=== PATIENT | male | born 1935 | race Caucasian/White ===

== ENCOUNTER 2016-10-16 16:51 | Inpatient (IN) | payer OTHER, MEDICARE ==
[~2016-10-16] VITALS: Ht 174 cm
[~2016-10-16 16:51] MED LIST: ALBUTEROL2.5 MG/3 M IH; ASA CHILDREN'S81 MG PO; BENADRY PO; DIFLUCAN DPS100 MG PO; GLUCOTROL DPS5 MG PO; HUMULIN SQ; METOPROLOL TART25 MG PO; MOVANTIK25 MG PO; MUCINEX600 MG PO; NEURONTIN800 MG PO; NORCO 10-325 T1 EACH PO; NOVOLIN-N,100 UNITS/ SQ; PROAIR HFA8.5 GM IH; SV CALCIUM-MAG1 EACH PO; SYMBICORT160 MCG/6; TIZANIDINE HCL2 M1 PO; VITAMIN D1000 UNIT PO; [UNRECOGNIZED DRUG - OTHER] PO
--- NOTE | 2016-10-17 21:15 | NUR ---
REPORT GIVEN @ BEDSIDE @ 184, PT PALE, SLEEPING, RESPIRATIONS LABORED AND DEEP, ON CONTINOUS DILAUDID ADMINISTRATIVE OFFICE ASSISTANT, FAMILY @ BEDISDE, NO ASSESSMENT DONE AT THAT TIME. NURSE ALERTED ME THAT PT WAS AGNOAL BREATHING, WHEN I CAME INTO THE ROOM, PT WAS PALE, MOTTLED, AND WAS AGNOAL BREATHING, FAINT HEART BEAT HEARD BY MYSELF AND ANOTHER NURSE AT THAT TIME, WE LEFT THE ROOM FOR A MOMENT TO CALL [facility]. AND LET THEM KNOW ABOUT AHEAD OF TIME, AFTER GETTING OF THE PHONE WITH [facility]. A FAMILY MEMBER CAM OUT AND SAID THEY BELIEVED THAT HE HAS PASSED, AT THAT TIME MYSELF AND ANOTHER NURSE WENT IN AND CONFIRMED TOD @ 191,. IV OD NS TKO AND DILAUDID ADMINISTRATIVE OFFICE ASSISTANT WERE STOPPED AND DISCONNECTED FROM PT AT THAT TIME. [facility] AND [facility] THEN WERE CALLED AND POST MORTEM PROTOCOL WAS FOLLOWED.
--- NOTE | 2016-10-26 07:12 | DS ---
ADMIT: 10/16/2016 RM/LOC: [address] [facility] MR#: [id number] [facility]#: [id number] [address] [id number] QUIQUE HARVEYN [address] [place] [address] General Discharge Summary SEX: M AGE: 80 : 1935 ADMISSION DATE: 10/16/2016 DISCHARGE DATE: 10/17/2016 FINAL DIAGNOSES: 1. Metastatic lung cancer. 2. Severe back pain secondary to metastatic lung cancer. 3. Severe debility. 4. Chronic obstructive pulmonary disease. REASON FOR ADMISSION: See discharge summary from previous admission. HOSPITAL COURSE: In short, this is a 80-year-old gentleman, who was admitted to inpatient hospice after a 5-day hospitalization for nausea, vomiting, and fever. This was associated with taking pain medication for his severe back pain. He failed outpatient management of his back pain because he had severe pain. He was put on IV medicines and on the had a kyphoplasty, which was unsuccessful in relieving his pain; therefore, on the , decision was made to put him into inpatient hospice, so this was done. He was treated, and pain and symptoms were controlled. Ultimately, the patient was found to have at 1705 hours. Giovanny Noel MD/ serafin JOB #: [id number] CC: Giovanny Noel MD, Attending Physician Giovanny Noel MD, Family Physician
== END 2016-10-17 19:15 | disposition expired | DRG 181 ==
LOC: 4PCU 16:51
PROVIDERS: ADMIT Internal Medicine
DX: C34.90 Malignant neoplasm of unspecified part of unspecified bronchus or lung (principal); C79.51 Secondary malignant neoplasm of bone; C78.7 Secondary malignant neoplasm of liver and intrahepatic bile duct; Z51.5 Encounter for palliative care; F41.9 Anxiety disorder, unspecified; G89.3 Neoplasm related pain (acute) (chronic); I10 Essential (primary) hypertension; I25.10 Atherosclerotic heart disease of native coronary artery without angina pectoris; I73.9 Peripheral vascular disease, unspecified; E11.65 Type 2 diabetes mellitus with hyperglycemia; Z66 Do not resuscitate